=== PATIENT | male | born 1985 | race Caucasian/White ===

== ENCOUNTER 2017-04-27 12:58 | Emergency (ER) | payer OTHER ==
[~2017-04-27] VITALS: Ht 172.7 cm; Wt 84.0 kg
[2017-04-27 13:00] VITALS: Ht 172.7 cm; Wt 84.0 kg
--- NOTE | 2017-04-27 14:58 | ERD ---
ER Documentation Chief Complaint Date/Time DATE: 04/27/17 TIME: 14:57 Chief Complaint RIGHT KNEE PAIN,Pt ACCIDENTALLY TWISTED IT HPI This is a 31-year-old male who presents to the emergency department today complaining of right knee pain for the past 3 days. Patient states he heard a crack in his knee and it happened when he went from sitting to standing. Patient states that he has had left knee pain for the past 6-8 months and just got an x-ray on it yesterday but does not have any results. States his right knee pain is the exact same pain that he has had in his left knee. States he had some swelling and bruising on his right knee. Denies any fevers or chills. States he has pain with ambulation. ROS All systems reviewed and are negative except as per history of present illness. Medications Home Meds Active Scripts Acetaminophen* (Tylophen*) 500 Mg Capsule, 1 CAP PO Q6H Y for PAIN AND OR ELEVATED TEMP, #30 CAP Prov:BLANCA PERALTA PA-C 04/27/17 Naproxen* (Naprosyn*) 500 Mg Tablet, 500 MG PO BID Y for PAIN AND/OR INFLAMMATION, #30 TAB Prov:BLANCA PERALTA PA-C 04/27/17 PMhx/Soc Medical and Surgical Hx: pt denies Medical Hx, pt denies Surgical Hx Hx Alcohol Use: No Hx Substance Use: No Hx Tobacco Use: No Smoking Status: Never smoker Physical Exam Vitals Vital Signs Date Time Temp Pulse Resp B/P Pulse Ox O2 Delivery O2 Flow Rate FiO2 04/27/17 13:00 97.4 67 18 133/60 98 Physical Exam Const: No acute distress Head: Atraumatic Eyes: Normal Conjunctiva ENT: Normal External Ears, Nose and Mouth. Neck: Full range of motion..~ No meningismus. Resp: Clear to auscultation bilaterally Cardio: Regular rate and rhythm, no murmurs Skin: No petechiae or rashes MSK: Right knee with no obvious deformity. Mild effusion. No ecchymosis. Tenderness to palpation medial border of patella and medial joint line. Negative valgus stress test. Positive grind test. Pulses 2+. Distal neurovascularly intact. Nontender gastroc. Neur: Awake and alert Psych: Normal Mood and Affect Results 24 hrs DIAGNOSTIC IMAGING REPORT Patient: REBEKA ELI : 1985 Age: 31 Sex: M MR #: [id number] DOS: 04/27/17 0000 Ordering MD: BLANCA PERALTA PA-C Location: [facility] Room/Bed: PROCEDURE: RIGHT knee x-ray CLINICAL INDICATION: Knee pain TECHNIQUE: AP, lateral and tunnel views of the knee were obtained. COMPARISON: None FINDINGS: There is normal mineralization. No acute fracture or dislocation is seen. There is no joint effusion. There are no significant degenerative changes. There is no significant soft tissue swelling. RPTAT: AA IMPRESSION: Normal x-ray of the right knee. .Chet Lucas MD, MD Date Time Electronically viewed and signed by .Chet Lucas MD, MD on 04/27/2017 15: 38 .S/ CC: BLANCA PERALTA PA-C Procedures/MDM This a 31-year-old male presents to the emergency department today complaining of right knee pain. Patient indicated that the pain started when he went from sitting to standing and he felt a crack. Given that patient has had similar complaints on left knee and patient states it is the same as the left knee that is been ongoing for the past 6-8 months symptoms at this time appear most consistent with patellofemoral syndrome and possible patella subluxation. There is a small amount of effusion over the right knee given that the patient is unable to ambulate I did obtain images. Per the radiology report images of the right knee are normal. There is no acute fracture dislocation. No joint effusion. No significant degenerative changes. No significant soft tissue swelling peer Patient symptoms at this time is consistent with sprain versus strain versus contusion versus meniscus injury versus patella subluxation versus patella femoral syndrome I have explained this to the patient. I have explained to the patient he may benefit from an MRI as an outpatient. Low suspicion for acute fracture dislocation. Patient is afebrile and otherwise well-appearing. Low suspicion for septic joint or gout. Patient declined pain medication here in the emergency department. He was given a knee immobilizer and crutches to help ambulate. The patient he should follow-up with his primary care doctor for referral to protective service specialist for both of his knees as he may benefit from physical therapy. Patient understood. Patient will be given a prescription for Naprosyn and Tylenol for home. At this time the patient is stable for discharge and outpatient management. Patient should follow up with their PCP in the next 1-2 days. They may return to the emergency department sooner for any persistent or worsening of symptoms. Patient understood and agreed with the plan. Departure Diagnosis: Primary Impression: Knee pain Laterality: right Chronicity: acute Qualified Code: M25.561 - Acute pain of right knee Condition: BLANCA Greenberg PA-C Apr 27, 2017 14:58
--- NOTE | 2017-04-27 15:39 | RADRPT ---
PROCEDURE: RIGHT knee x-ray CLINICAL INDICATION: Knee pain TECHNIQUE: AP, lateral and tunnel views of the knee were obtained. COMPARISON: None FINDINGS: There is normal mineralization. No acute fracture or dislocation is seen. There is no joint effusion. There are no significant degenerative changes. There is no significant soft tissue swelling. RPTAT: AA IMPRESSION: Normal x-ray of the right knee. .Chet Lucas MD, MD Date Time Electronically viewed and signed by .Chet Lucas MD, on 04/27/2017 15:38 .S/
[2017-04-27] MEDS ORDERED: NAPR-260 PO (15:54)
[2017-04-27] MEDS ORDERED: ACET500C5 PO (15:55)
== END 2017-04-27 16:11 | disposition home or self-care (01) ==
LOC: FTE 12:58
DX: M25.561 Pain in right knee (principal)
CPT/HCPCS: 29505; 73562; Z7502